=== PATIENT | female | born 1955 | race Caucasian/White ===

== ENCOUNTER → 2017-03-11 | Day surgery (SDC) | payer MEDICARE, MEDICAID ==
[2017-03-11 11:59] VITALS: RESP 16; TEMP 97.9; BMI 28.3
[2017-03-11 13:08] VITALS: BP 116/72; PULSE 87
--- NOTE | 2017-03-11 13:17 | USB ---
EXAMINATION TYPE: US breast aspiration single RT DATE OF EXAM: 03/11/2017 COMPARISON: Outside right breast ultrasound dated 02/23/2017 and diagnostic mammogram dated 01/01/2017 as well as bilateral diagnostic mammogram dated 2016. CLINICAL HISTORY: R92.8 Abnormal mammo. Request for biopsy at the 12:00 position from an outside institution. PROCEDURE: No definite sonographic abnormality was seen at the 12:00 position on the outside images (2 sonographic images of the 12:00 position from an exam dated ). Therefore no biopsy was performed at this location. Preprocedural scanning was performed from the 11:00 to the 3:00 positions as well as at the 9: 00 position. At the 9:00 position a hypoechoic bilobed area with no definitive increased through transmission was seen measuring 0.6 x 0.4 x 0.6 cm. On real- time scanning these appeared nearly anechoic and possibly cystic and therefore cyst aspiration was attempted with discussion with the patient to convert to biopsy if aspiration was unsuccessful. Informed consent was obtained from the patient. The patient's daughter was present prior to and during the procedure. Timeout was performed prior to the procedure using 2 patient identifiers. The sonographic abnormality at the 9:00 position within the right breast was anesthetized with 1% lidocaine after anesthetizing the skin surface. 18-gauge spinal needle was then advanced into the cystic structure with aspiration of a scant amount of viscous serosanguineous fluid. Postprocedural scanning demonstrated near complete resolution of the hemorrhagic or inflammatory cyst with small adjacent simple appearing cysts. The patient tolerated the procedure well and was stable upon discharge. IMPRESSION: BI-RADS 2-benign finding. Ultrasound-guided right breast cyst aspiration at the 9:00 position with scant amount of viscous serosanguineous fluid retrieved indicating either hemorrhagic or inflammatory cyst with sample sent to the laboratory for analysis. Pathology Results: Benign BREAST, RIGHT, ASPIRATE: AGGREGATES OF BLAND DUCTAL EPITHELIAL AND APOCRINE CELLS WITH BACKGROUND DEGENERATED CELLULAR MATERIAL CONSISTENT WITH PROLIFERATIVE FIBROCYSTIC CHANGES. Recommendation Follow up ultrasound of the right breast in 6 months. MTDD
== END ==
LOC: RADUSWWP 11:16 → EEVIPCON 11:16
PROVIDERS: ATTEND Family Medicine
DX: N60.01 Solitary cyst of right breast (principal)
CPT/HCPCS: 88108; 76942; 19000; J2001

== ENCOUNTER → 2017-03-23 | Outpatient (CLI) | payer MEDICARE, OTHER ==
--- NOTE | 2017-03-23 12:35 | CT ---
EXAMINATION TYPE: CT brain wo con DATE OF EXAM: 03/23/2017 COMPARISON: 01/14/2010 HISTORY: Patient poor historian. Memory loss. CT DLP: 842.[address] of the brain was performed. The ventricles, basal cisterns and sulci overlying the cerebral convexities demonstrate mild enlargem ent. There is no evidence for intracranial hemorrhage or sulcal effacement. There is decreased attenuation about the periventricular white matter and deep white matter of both c erebral hemispheres, compatible with chronic small vessel ischemia. Differential diagnosis does inclu de demyelination. No mass effects are seen.No midline shift. Osseous calvarium is intact. Mastoidectomy changes left sided mastoid air cells. If symptoms persist consider MRI. IMPRESSION: 1. Age related atrophic and chronic small vessel ischemic change without acute intracranial process s een at this time.
== END | disposition home or self-care (01) ==
LOC: RADCTMAIN 11:57
PROVIDERS: ATTEND Psychiatry & Neurology Neurology
DX: G31.9 Degenerative disease of nervous system, unspecified (principal); I67.82 Cerebral ischemia
CPT/HCPCS: 70450